=== PATIENT | female | born 1950 | race Caucasian/White ===

== ENCOUNTER 2019-02-13 09:21 | Emergency (ER) | payer MEDICARE ==
[~2019-02-13] VITALS: Ht 158.8 cm; Wt 93.9 kg
--- OUTSIDE RECORDS SUMMARY | 2019-02-13 09:27 | XMS REPORT | CCD ---
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 Name Role Phone PP Unavailable CCM Unavailable Summary Purpose Interface Exchange Insurance Providers Payer name Policy type / Coverage type Covered libertarian ID Effective Begin Date Effective End Date [employer] Commercial [employer] [id number] 2018 Unknown [employer] Commercial Insurance [id number] Unknown Family history Father Diagnosis Age At Onset Cancer Unknown Mother Diagnosis Age At Onset Hypertension Unknown Hyperlipidemia Unknown Arthritis Unknown Social History Social History Element Codes Description Effective Dates Marital status Unknown 12/19/2018 Number of children Unknown 3 12/19/2018 Employment Unknown Retired 12/19/[address]: 7239504 Quit over 10 years ago 199912/19/[address]: 229818125 Never drinks alcohol 12/19/2018 Allergies, Adverse Reactions, Alerts Substance Reaction Codes Entered Date Inactivated Date Status Tape Unknown 12/19/2018 No Inactive Date Active * NO KNOWN DRUG ALLERGIES Unknown 12/19/2018 No Inactive Date Active Past Medical History Illness Codes Condition Status Onset Date Resolved Date Angina pectoris with documented spasm ICD-9: 413.1 ICD-10: I20.1 Active 12/20/2018 Unknown Atrophy of thyroid (acquired) ICD-9: 244.8 ICD-10: E03.4 Active 12/20/2018 Unknown Essential (primary) hypertension ICD-9: 401.1 ICD-10: I10 Active 12/20/2018 Unknown Mixed hyperlipidemia ICD- 9: 272.2 ICD-10: E78.2 Active 12/20/2018 Unknown Problems Condition Codes Effective Dates Condition Status Angina pectoris with documented spasm ICD-9: 413.1 ICD-10: I20.1 12/20/2018 Active Atrophy of thyroid (acquired) ICD-9: 244.8 ICD-10: E03.4 12/20/2018 Active Essential (primary) hypertension ICD-9: 401.1 ICD-10: I10 12/20/2018 Active Mixed hyperlipidemia ICD- 9: 272.2 ICD-10: E78.2 12/20/2018 Active Medications Medication Codes Instructions Start Date Stop Date Status Fill Instructions aspirin 325 mg tablet RxNorm: 331449 1 Tablet(s) PO daily 12/20/2018 01/18/2019 Active felodipine ER 5 mg tablet,extended release 24 hr RxNorm: 073490 1 Tablet(s) PO daily 12/19/2018 01/17/2019 Active isosorbide mononitrate ER 30 mg tablet,extended release 24 hr RxNorm: 425544 1 Tablet(s) PO BID No Start Date Active Prilosec 20 mg capsule,delayed release RxNorm: 615241 1 Capsule(s) PO daily No Start Date Active losartan 50 mg tablet RxNorm: 199570 1 Tablet(s) PO daily No Start Date Active Ocuvite Eye Health 50 mg-15 unit-4.5 mg-2.5 mg chewable tablet RxNorm: 1 Tablet(s) PO daily No Start Date Active ezetimibe 10 mg tablet RxNorm: 946523 1 Tablet(s) PO daily No Start Date Active magnesium 250 mg tablet RxNorm: 1 Tablet(s) PO daily No Start Date Active levothyroxine 100 mcg tablet RxNorm: 166921 1 Tablet(s) PO daily No Start Date Active Osteo Bi-Flex Triple Strength 750 mg-644 mg-30 mg-1 mg tablet RxNorm: 1 Tablet(s) PO BID No Start Date Active triamterene 37.5 mg-hydrochlorothiazide 25 mg tablet RxNorm: 991758 1 Tablet(s) PO daily No Start Date Active [facility] Aspirin 81 mg chewable tablet RxNorm: 019309 1 Tablet(s) PO daily No Start Date 12/20/2018 Inactive Medication Administered No Medication Administered data Immunizations No Immunization data Assessments Condition Codes Effective Dates Mixed hyperlipidemia ICD-10: E78.2 ICD-9: 272.2 12/20/2018 Essential (primary) hypertension ICD-10: I10 ICD-9: 401.1 12/20/2018 Atrophy of thyroid (acquired) ICD-10: E03.4 ICD-9: 244.8 12/20/2018 Angina pectoris with documented spasm ICD-10: I20.1 ICD-9: 413.1 12/20/2018 Reason For Visit Reason For Visit Effective Dates Notes ~generic 12/20/2018 establish care Results Observation Observation Code Item Item Code Result Date Free T4 Ody747 FREE T4 1.15 ng/dL 12/20/2018 Comp Metabolic Axf986 NA 138 mEq/L 12/20/2018 Comp Metabolic Zwv273 K 4.5 mEq/L 12/20/2018 Comp Metabolic Bvg179 CL 103 mEq/L 12/20/2018 Comp Metabolic Jka262 CO2 25.0 mEq/L 12/20/2018 Comp Metabolic Wol711 ANION GAP 15 12/20/2018 Comp Metabolic Trk511 GLUCOSE 103 mg/dL 12/20/2018 Comp Metabolic Afo588 Creat 1.4 mg/dL 12/20/2018 Comp Metabolic Wyp324 eGFR 41 ml/min/1.73m2 12/20/2018 Comp Metabolic Jby474 BUN 29 mg/dL 12/20/2018 Comp Metabolic Tne899 B/C Ratio 21.2 Ratio 12/20/2018 Comp Metabolic Rdd088 CALCIUM 9.7 mg/dL 12/20/2018 Comp Metabolic Mgu660 ALK PHOS 82 U/L 12/20/2018 Comp Metabolic Jjq893 AST(SGOT) 12 U/L 12/20/2018 Comp Metabolic Mqx955 ALT(SGPT) 12 U/L 12/20/2018 Comp Metabolic Msa809 BILI T 0.6 mg/dL 12/20/2018 Comp Metabolic Rbi004 ALBUMIN 4.3 g/dL 12/20/2018 Comp Metabolic Zhd248 TPRO 7.4 g/dL 12/20/2018 Comp Metabolic Mfi271 GLOB 3.2 g/dL 12/20/2018 Comp Metabolic Qfs365 A/G Ratio 1.3 Ratio 12/20/2018 Comp Metabolic Ejp512 Osmo 282 mOsmo 12/20/2018 Cbc With Differential Ord2 WBC 9.47 K/ul 12/20/2018 Cbc With Differential Ord2 RBC 4.30 M/ul 12/20/2018 Cbc With Differential Ord2 HGB 12.1 g/dl 12/20/2018 Cbc With Differential Ord2 HCT 37.2 % 12/20/2018 Cbc With Differential Ord2 Neut% 71.1 % 12/20/2018 Cbc With Differential Ord2 MCV 86.5 fl 12/20/2018 Cbc With Differential Ord2 Lymph% 19.5 % 12/20/2018 Cbc With Differential Ord2 MCH 28.1 pg 12/20/2018 Cbc With Differential Ord2 [place]% 7.8 % 12/20/2018 Cbc With Differential Ord2 MCHC 32.5 pg 12/20/2018 Cbc With Differential Ord2 Eos% 1.2 % 12/20/2018 Cbc With Differential Ord2 PLT 346 K/ul 12/20/2018 Cbc With Differential Ord2 Baso% 0.4 % 12/20/2018 Cbc With Differential Ord2 RDW 14.7 % 12/20/2018 Cbc With Differential Ord2 Neut ABS# 6.73 K/ul 12/20/2018 Cbc With Differential Ord2 Lymph ABS# 1.85 K/ul 12/20/2018 Cbc With Differential Ord2 [place] ABS# 0.7 K/ul 12/20/2018 Cbc With Differential Ord2 Eos ABS# 0.1 K/ul 12/20/2018 Cbc With Differential Ord2 Baso ABS# 0.0 K/ul 12/20/2018 Review of Systems System Result Effective Dates Constitutional No recent illness 12/20/2018 Constitutional No chills 12/20/2018 Constitutional No fatigue 12/20/2018 Constitutional No fever 12/20/2018 Constitutional No insomnia 12/20/2018 Constitutional No malaise 12/20/2018 Eyes No vision change 12/20/2018 Ears/Nose/Throat/Neck No dental pain 12/20/2018 Ears/Nose/Throat/Neck No dizziness 12/20/2018 Ears/Nose/Throat/Neck No dysphagia 12/20/2018 Ears/Nose/Throat/Neck No headache 12/20/2018 Ears/Nose/Throat/Neck No hearing loss 12/20/2018 Ears/Nose/Throat/Neck No nasal allergies 12/20/2018 Ears/Nose/Throat/Neck No sore throat 12/20/2018 Ears/Nose/Throat/Neck No postnasal drip 12/20/2018 Ears/Nose/Throat/Neck No sinus congestion 12/20/2018 Cardiovascular No chest pain/pressure 12/20/2018 Cardiovascular No dyspnea 12/20/2018 Cardiovascular No edema 12/20/2018 Cardiovascular No exercise intolerance 12/20/2018 Cardiovascular No fatigue 12/20/2018 Cardiovascular No near-syncope/dizziness 12/20/2018 Respiratory No chest tightness 12/20/2018 Respiratory No cough 12/20/2018 Respiratory No dyspnea 12/20/2018 Respiratory No pedal edema 12/20/2018 Gastrointestinal No abdominal pain 12/20/2018 Gastrointestinal No constipation 12/20/2018 Gastrointestinal No diarrhea 12/20/2018 Gastrointestinal No gastroesophageal reflux 12/20/2018 Gastrointestinal No nausea 12/20/2018 Gastrointestinal No vomiting 12/20/2018 Genitourinary/Nephrology No dysuria 12/20/2018 Genitourinary/Nephrology No nocturia 12/20/2018 Genitourinary/Nephrology No urinary incontinence 12/20/2018 Musculoskeletal No stiffness 12/20/2018 Musculoskeletal No swelling 12/20/2018 Musculoskeletal No muscle weakness 12/20/2018 Musculoskeletal No myalgias 12/20/2018 Dermatologic No rash 12/20/2018 Dermatologic No sores 12/20/2018 Neurologic No dizziness 12/20/2018 Neurologic No headache 12/20/2018 Neurologic No neck pain 12/20/2018 Neurologic No syncope 12/20/2018 Psychiatric No anxiety 12/20/2018 Psychiatric No depression 12/20/2018 Cardiovascular hypertension 12/20/2018 Physical Exam Exam Name System Name Item Name Status Result Effective Dates Notes Full Exam - General 1994 Constitutional general appearance Development: well developed 12/20/2018 None Full Exam - General 1994 Constitutional general appearance Development: appears stated age 0412/20/2018 None Full Exam - General 1994 Constitutional general appearance Hygiene/Attention to Grooming: good hygiene 12/20/2018 None Full Exam - General 1994 Eyes conjunctiva/eyelids Overall: conjunctiva clear 12/20/2018 None Full Exam - General 1994 Eyes conjunctiva/eyelids Overall: cornea clear 12/20/2018 None Full Exam - General 1994 Eyes conjunctiva/eyelids Overall: eyelids normal 12/20/2018 None Full Exam - General 1994 Eyes pupils and irises Overall: pupils equal, round, reactive to light and accomodation 12/20/2018 None Full Exam - General 1994 Ears/Nose/Throat otoscopic exam Overall: external auditory canals clear 12/20/2018 None Full Exam - General 1994 Ears/Nose/Throat otoscopic exam Overall: tympanic membranes clear 12/20/2018 None Full Exam - General 1994 Ears/Nose/Throat lips/teeth/gingiva Overall: benign lips 12/20/2018 None Full Exam - General 1994 Ears/Nose/Throat lips/teeth/gingiva Overall: normal dentition 12/20/2018 None Full Exam - General 1994 Ears/Nose/Throat oral cavity/pharynx/larynx Overall: oral mucosa clear 12/20/2018 None Full Exam - General 1994 Ears/Nose/Throat oral cavity/pharynx/larynx Overall: oropharyngeal mucosa clear 12/20/2018 None Full Exam - General 1994 Ears/Nose/Throat oral cavity/pharynx/larynx Overall: hypopharynx benign 12/20/2018 None Full Exam - General 1994 Ears/Nose/Throat oral cavity/pharynx/larynx Overall: no masses 12/20/2018 None Full Exam - General 1994 Respiratory auscultation Overall: breath sounds clear bilaterally 12/20/2018 None Full Exam - General 1994 Respiratory respiratory effort/rhythm Overall: no retractions 12/20/2018 None Full Exam - General 1994 Respiratory respiratory effort/rhythm Overall: normal rate 12/20/2018 None Full Exam - General 1994 Cardiovascular extremities Overall: no clubbing 12/20/2018 None Full Exam - General 1994 Cardiovascular auscultation of heart Overall: regular rate 12/20/2018 None Full Exam - General 1994 Cardiovascular auscultation of heart Overall: normal heart sounds 12/20/2018 None Full Exam - General 1994 Abdomen abdominal exam Overall: no tenderness 12/20/2018 None Full Exam - General 1994 Abdomen abdominal exam Overall: normal bowel sounds 12/20/2018 None Full Exam - General 1994 Lymphatic neck nodes Overall: anterior cervical chain benign 12/20/2018 None Full Exam - General 1994 Lymphatic neck nodes Overall: posterior cervical chain benign 12/20/2018 None Full Exam - General 1994 Musculoskeletal spine, ribs and pelvis Overall: spine benign 12/20/2018 None Full Exam - General 1994 Musculoskeletal spine, ribs and pelvis Overall: sacroiliac joint benign 12/20/2018 None Full Exam - General 1994 Musculoskeletal spine, ribs and pelvis Overall: good posture 12/20/2018 None Full Exam - General 1994 Musculoskeletal head and neck Overall: head atraumatic 12/20/2018 None Full Exam - General 1994 Musculoskeletal head and neck Overall: cervical spine benign 12/20/2018 None Full Exam - General 1994 Integument inspection of skin Overall: few scattered moles, no gross abnormalities 12/20/2018 None Full Exam - General 1994 Neurologic cranial nerves Overall: crainial nerves 2 - 12 grossly intact 12/20/2018 None Full Exam - General 1994 Psychiatric orientation/consciousness Overall: oriented to person, place and time 12/20/2018 None Full Exam - General 1994 Psychiatric mood and affect Overall: normal mood and affect 12/20/2018 None Procedures No Procedures data Vital Signs Date Vital 12/20/2018 Blood Pressure 1: 122/88 Code: 8480-6 BMI: 37.9 Code: 18642-7 Heart Rate 1: 67 bpm Height: 5'2" SpO2: 97% Weight: 207 lbs Functional Status No Functional Status data History of Present Illness Symptom Name Status Result Effective Date Notes Quality chronic 12/20/2018 None Onset and Resolution ongoing 12/20/2018 None Onset of Symptom during adulthood 12/20/2018 None Severity mild 12/20/2018 None Triggers no known associated factors 12/20/2018 None Alleviating Factors medication 12/20/2018 None Exacerbating Factors stress 12/20/2018 None Advance Directives No Advance Directive data Encounters Encounter Performer Location Codes Date () OFFICE VISIT, [facility] - LEVEL 4 Diagnosis: Essential (primary) hypertension[ICD10: I10] Diagnosis: Atrophy of thyroid (acquired)[ICD10: E03.4] Diagnosis: Angina pectoris with documented spasm[ICD10: I20.1] Diagnosis: Mixed hyperlipidemia[ICD10: E78.2] [facility] CPT- 4: 25892 12/20/2018 Plan of Care Planned Activity Notes Codes Status Date Visit Plan: Hypertension - well controlled - continue with current medications, continue with no added salt diet. Pt has been encouraged to exercise daily. The pt has been advised to call the office if there are any acute concerns about change in blood pressure readings at home. Hypothyroidism - pt with chronic hypothyroidism, continue with current medication, will monitor pt to signs or symptoms of lack of adequate supplementation. Pt is to continue with current dose of medication unless directed otherwise. Check labs at regular intervals q 3 months or q 6 months based on previous levels of control. Hyperlip idemia - pt has been counseled about appropriate diet, exercise, and need for low fat food choices. I have discussed the need for the patient to take medications as prescribed. If the patient has negative side effects from the medication, they are to CALL the office and not abruptly discontinue the medication without discussion with a practitioner in the office. We will check labs in 3-6 months for follow up on the patient's chronic medical problem and to assure normal liver response to medications. Angina - chronic - - referral to Dr. Story at [facility] [place] [facility]. Check labs today. 12/20/2018 Patient Education: Patient Medication Summary Completed 12/20/2018 Patient Education: Cholesterol Management Completed 12/20/2018 Care Plan: Tsh Pending 12/20/2018 Instructions Comment . Hypertension - well controlled - continue with current medications, continue with no added salt diet. Pt has been encouraged to exercise daily. The pt has been advised to call the office if there are any acute concerns about change in blood pressure readings at home. Hypothyroidism - pt with chronic hypothyroidism, continue with current medication, will monitor pt to signs or symptoms of lack of adequate supplementation. Pt is to continue with current dose of medication unless directed otherwise. Check labs at regular intervals q 3 months or q 6 months based on previous levels of control. Hyperlipidemia - pt has been counseled about appropriate diet, exercise, and need for low fat food choices. I have discussed the need for the patient to take medications as prescribed. If the patient has negative side effects from the medication, they are to CALL the office and not abruptly discontinue the medication without discussion with a practitioner in the office. We will check labs in 3-6 months for follow up on the patient's chronic medical problem and to assure normal liver response to medications. Angina - chronic - - referral to Dr. Story at [facility] [place]. Check labs today.
[2019-02-13] MEDS ORDERED: predniSONE 20 MG TAB PO ONE (10:00)
[2019-02-13] MEDS ORDERED: COLCHICINE 0.6 MG (COLCRYS) TABLET PO ONE (10:00)
--- NOTE | 2019-02-13 10:27 | Diagnostic Imaging Report ---
INDICATION: Left foot pain, injury COMPARISON: None FINDINGS: 3 views of the left foot demonstrate hallux valgus deformity. Mild degenerative changes seen throughout most of the articular surfaces. Soft tissue swelling is present. There is chronic calcaneal osteophytosis. There is no acute fracture or dislocation. No radiopaque foreign body. IMPRESSION: No fracture fracture or dislocation Dictated by: Dictated on workstation # [id number]
[2019-02-13] MEDS ORDERED: HYDR-4226 PO (10:44)
[2019-02-13] MEDS ORDERED: PRD20T PO (10:44)
--- NOTE | 2019-02-13 10:46 | ED Lower Extremity ---
General Chief Complaint: Lower Extremity Stated Complaint: LT FOOT INJ Nursing Triage Note: Pt arrived by private vehicle with sister, with left foot pain. Pt was alert, oriented and ambulatory with crutches at arrival. Pt was wheeled to room 6. Pt stated this [place] over flat stone, but never remembered injurying foot. Pt stated she did walk through grass with no shoes, because there was a lot of water. Pt's left foot is swollen and she stated her pain is localized at joint of big toe. Nursing Sepsis Screen: No Definite Risk Source: patient Exam Limitations: no limitations History of Present Illness Date Seen by Provider: February 13, 2019 Time Seen by Provider: 09:50 Initial Comments This is a 68 y/o f who presents to the ED with c/o L great toe pain. Reports progressive pain over the past 4 days. States that she was walking outside barefoot but denies any trauma/injury. Pain is local to proximal joint, constant, sharp, 6-7/10, improved with home tramadol. Pain increased with movement and weight bearing. No history of gout. no fever, no rash. Allergies and Home Medications Allergies Coded Allergies: No Known Drug Allergies (Unverified , 02/13/19) Home Medications Hydrocodone/Acetaminophen 1 Each Tablet, 1 TAB PO Q4-6HR Prescribed by: MECHELLE SAINI on 02/13/19 1044 Prednisone 20 Mg Tab, 40 MG PO DAILY Prescribed by: MECHELLE SAINI on 02/13/19 1044 Patient Home Medication List Home Medication List Reviewed: Yes Review of Systems Constitutional: No chills, No fever, No weakness EENTM: see HPI, no symptoms reported Respiratory: no symptoms reported; No cough, No dyspnea on exertion, No short of breath Cardiovascular: no symptoms reported; No chest pain, No edema, No palpitations Gastrointestinal: no symptoms reported; No abdominal pain; nausea Genitourinary: no symptoms reported Musculoskeletal: joint pain, joint swelling; No muscle pain, No muscle stiffness, No muscle weakness Skin: No lesions, No pruritus, No rash All Other Systems Reviewed Negative Unless Noted: Yes Past Tdscvyu-Nvppeh-Spzpnm Hx Patient Social History Recent Foreign Travel: No Contact w/Someone Who Travel: No Recent Infectious Disease Expo: No Physical Abuse: No Sexual Abuse: No Mistreated: No Fear: No Physical Exam Vital Signs Vital Signs - First Documented 02/13/19 09:39 Temp 100.0 Pulse 82 Resp 22 B/P (MAP) 150/55 (86) Pulse Ox 95 O2 Delivery Room Air Capillary Refill : Less Than 3 Seconds Height, Weight, BMI Height: 5'2.50" Weight: 207lbs. 0oz. 93.225108ce; BMI Method:Stated General Appearance: obese, other (non-toxic appearing) HEENT: PERRL/EOMI Cardiovascular: regular rate, rhythm, no JVD, no murmur Respiratory: lungs clear, normal breath sounds, no respiratory distress, no accessory muscle use Gastrointestinal: normal bowel sounds, soft Feet: bilateral foot other (Mild to moderate swelling of left great toe at MTP joint. Mild swelling of entire toe. Focal tenderness to MTP joint. Able to rotate toe at MTP with minimal pain but ROM limited 2/2 pain. No overlying rash or warmth. DP pulse +2/4. Cap refill < 2 secs. ) Neurologic/Psychiatric: alert, normal mood/affect, oriented x 3 Skin: normal color, warm/dry, other (no rash ) Progress/Results/Core Measures Results/Orders My Orders Orders - MECHELLE SAINI DO Prednisone Tablet (Deltasone Tablet) (02/13/19 10:00) Colchicine Tablet (Colcrys Tablet) (02/13/19 10:00) Foot 3 View Left (02/13/19 09:59) Medications Given in ED Current Medications Medications Dose Ordered Sig/Liss Route Start Time Stop Time Status Last Admin Dose Admin Prednisone 40 mg ONCE ONCE PO 02/13/19 10:00 02/13/19 10:01 DC 02/13/19 10:05 40 MG Vital Signs/I&O 02/13/19 09:39 Temp 100.0 Pulse 82 Resp 22 B/P (MAP) 150/55 (86) Pulse Ox 95 O2 Delivery Room Air Blood Pressure Mean: 86 Progress Progress Note : Time: 10:46 Progress Note Clinical exam consistent with gout. No overlying rash, no fever. nontoxic appearing. No Colchicine in the ED. Will provide Rx for 1.2 than [address] on steroid course and step pt up from home Tramadol to Hydrocodone. Advised PCP follow up for evaluation for Allopurinol. XR of foot with no acute findings. ER return precautions given. Pt verbalized understanding. All questions answered. Diagnostic Imaging Comments Left foot XR IMPRESSION: No fracture fracture or dislocation Departure Impression Primary Impression: Gout Disposition: 01 HOME, SELF-CARE Condition: Stable Departure-Patient Inst. Decision time for Depature: 10:41 Referrals: SANDY BAKER MD (PCP/Family) Primary Care Physician Patient Instructions: Gout (DC) Add. Discharge Instructions: Please read the attached handouts. Continued elevation and weight bearing as tolerated. Please take the Colchicine and steroids as prescribed. Take the entire course of steroids. Take the hydrocodone as needed for pain. Follow up with your primary care physician in the next 2-3 days. All discharge instruc tions reviewed with patient and/or family. Voiced understanding. Scripts Hydrocodone/Acetaminophen (Bouse 5-325 Tablet) 1 Each Tablet 1 TAB PO Q4-6HR for Pain MDD 10 TABS for 7 Days, #20 TAB Prov: MECHELLE SAINI DO 02/13/19 Prednisone (Prednisone) 20 Mg Tab 40 MG PO DAILY, #6 TAB 0 Refills Prov: MECHELLE SAINI DO 02/13/19 MECHELLE SAINI DO February 13, 2019 10:46
[2019-02-13 10:54] VITALS: BP 162/69
== END 2019-02-13 10:54 | disposition home or self-care (01) ==
LOC: EDUNIT# 09:21 → ER FS 09:23
DX: M10.9 Gout, unspecified (principal); Z79.52 Long term (current) use of systemic steroids
CPT/HCPCS: 73630

== ENCOUNTER → 2019-07-25 | Outpatient (CLI) | payer MEDICARE, OTHER ==
[~2019-07-25] MED LIST: HYDR-4226 PO; PRD20T PO
--- NOTE | 2019-07-25 09:45 | Diagnostic Imaging Report ---
INDICATION: Z91.89 at risk for loss of bone. COMPARISON: None. FINDINGS: AP Spine L1-L4: [BMD (g/cm2): 1.056] [T-Score: -1.2] [Z-Score: -0.3] [BMD Previous: na] [BMD % Change: na] LT Hip Neck: [BMD (g/cm2): 0.779] [T-Score: -1.9] [Z-Score: -0.8] LT Hip Total: [BMD (g/cm2):0.851] [T-Score:-1.2] [Z-Score: -0.4] [BMD Previous: na] [BMD % Change: na] RT Hip Neck: [BMD (g/cm2):0.849] [T-Score:-1.4] [Z-Score:-0.3] RT Hip Total: [BMD (g/cm2):0.925] [T-score:-0.7] [Z-Score:0.2] [BMD Previous:na] [BMD % Change:na] World Health Organization criteria for BMD interpretation classify patients as Normal (T-score at or above -1.0), Osteopenic (T-score between -1.0 and -2.5) or Osteoporotic (T-score at or below -2.5). LIMITATIONS AND MODIFICATION: None. FRACTURE RISK (FRAX SCORE): The ten year probability of (%): Major Osteoporotic Fracture: [9.9] Hip Fracture: [1.5] IMPRESSION: 1. Osteopenia (Low bone mass). 2. Baseline examination. 3. See below National Osteoporosis Foundation guidelines on when to potentially initiate pharmacologic therapy. Based on the National Osteoporosis Foundation Guidelines, pharmacologic treatment should be initiated in any of the following, unless clinical conditions suggest otherwise: * Any patient with prior fragility fracture of the hip or vertebrae. A spine fracture indicates 5X risk for subsequent spine fracture and 2X risk for subsequent hip fracture. * Osteoporosis (T-score <-2.5). * Postmenopausal women and men age 50 and older with low bone mass/osteopenia (T-score between -1.0 and -2.5) by DXA and 10-year major osteoporotic fracture greater than 20% or a 10-year probability of hip fracture greater than 3%. These fracture risks are supplied above in the FRAX score, if applicable. * Clinician judgement and/or patient preferences may indicate treatment for people with 10-year fracture probabilities above or below these levels. Dictated by: Dictated on workstation # [id number]
--- NOTE | 2019-07-26 19:21 | Diagnostic Imaging Report ---
INDICATION: Screening The current study was also evaluated with a Computer Aided Detection (CAD) system. 3-D Tomographic imaging was also performed. Comparison made with prior examinations from 12/22/2016 and 09/02/2011. FINDINGS: There are scattered fibroglandular densities bilaterally. There are a few benign-type calcifications. There is no dominant mass, spiculated lesion, or suspicious calcification identified. The skin, nipples, and axillae are unremarkable. IMPRESSION: Benign. ACR BI-RADS Category 2: Benign findings. Result letter will be mailed to the patient. Note: At least 10% of breast cancer is not imaged by mammography. Dictated by: Dictated on workstation # [id number]
== END ==
LOC: RAD 08:26
PROVIDERS: ATTEND Family Medicine
DX: Z12.31 Encounter for screening mammogram for malignant neoplasm of breast (principal); M85.80 Other specified disorders of bone density and structure, unspecified site; Z91.89 Other specified personal risk factors, not elsewhere classified
CPT/HCPCS: 77067; 77080

== ENCOUNTER → 2021-10-07 | Outpatient (CLI) | payer MEDICARE, OTHER ==
--- NOTE | 2021-10-07 10:34 | Diagnostic Imaging Report ---
INDICATION: Postmenopausal. COMPARISON: 07/25/2019 FINDINGS: The bone mineral density of the spine and hips and femoral necks was measured. The total T score for the spine is -1.2. This is unchanged when compared to the prior exam. The T score for the left hip is -1.4 and for the right hip -0.5. On the prior exam the respective T-scores were -1.2 and -0.7. The T score for the left femoral neck is -2.0 and for the right -1.2. The respective T-scores on the prior exam were -1.9 and -1.4. AP Spine L1-L4: [BMD (g/cm2): 1.056] [T-Score: -1.2] [Z-Score: -0.5] [BMD Previous: 1.056] [BMD % Change: 0.0] LT Hip Neck: [BMD (g/cm2): 0.763] [T-Score: -2.0] [Z-Score: -0.9] LT Hip Total: [BMD (g/cm2):0.830] [T-Score:-1.4] [Z-Score: -0.6] [BMD Previous: 0.851] [BMD % Change: -2.5] RT Hip Neck: [BMD (g/cm2):0.874] [T-Score:-1.2] [Z-Score:-0.1] RT Hip Total: [BMD (g/cm2):0.946] [T-score:-0.5] [Z-Score:0.3] [BMD Previous:0.925] [BMD % Change:2.3] *Indicates significant change from prior examination based on 95% confidence level. World Health Organization criteria for BMD interpretation classify patients as Normal (T-score at or above -1.0), Osteopenic (T-score between -1.0 and -2.5) or Osteoporotic (T-score at or below -2.5). LIMITATIONS AND MODIFICATION: None. FRACTURE RISK (FRAX SCORE): The ten year probability of (%): Major Osteoporotic Fracture: [1.5] Hip Fracture: [1.9] IMPRESSION: 1. When compared to the prior exam, there has been no significant change. All the T score values indicate osteopenia with the exception of the right hip. The T score for the right hip is within normal limits. 2. 3. See below National Osteoporosis Foundation guidelines on when to potentially initiate pharmacologic therapy. Based on the National Osteoporosis Foundation Guidelines, pharmacologic treatment should be initiated in any of the following, unless clinical conditions suggest otherwise: * Any patient with prior fragility fracture of the hip or vertebrae. A spine fracture indicates 5X risk for subsequent spine fracture and 2X risk for subsequent hip fracture. * Osteoporosis (T-score <-2.5). * Postmenopausal women and men age 50 and older with low bone mass/osteopenia (T-score between -1.0 and -2.5) by DXA and 10-year major osteoporotic fracture greater than 20% or a 10-year probability of hip fracture greater than 3%. These fracture risks are supplied above in the FRAX score, if applicable. * Clinician judgement and/or patient preferences may indicate treatment for people with 10-year fracture probabilities above or below these levels. Dictated by: Dictated on workstation # [id number]
--- NOTE | 2021-10-07 14:04 | Diagnostic Imaging Report ---
INDICATION: Routine screening. COMPARISON: 07/25/2019 and 12/22/2016. TECHNIQUE: 2D and 3D bilateral screening mammography was performed with CAD. FINDINGS: Scattered fibroglandular densities are identified bilaterally. The parenchymal pattern is stable. No mass or malignant-appearing microcalcifications are seen. The axillae are unremarkable. IMPRESSION: No mammographic features suspicious for malignancy are identified. ACR BI-RADS Category 1: Negative. Result letter will be mailed to the patient. Note: At least 10% of breast cancer is not imaged by mammography. Dictated by: Dictated on workstation # [id number]
== END ==
LOC: RAD 09:15
PROVIDERS: ATTEND Family Medicine
DX: Z12.31 Encounter for screening mammogram for malignant neoplasm of breast (principal); M85.88 Other specified disorders of bone density and structure, other site; Z78.0 Asymptomatic menopausal state
CPT/HCPCS: 77063; 77067; 77080